=== PATIENT | male | born 1995 | race Caucasian/White ===

== ENCOUNTER 2024-07-16 21:37 | Emergency (ER) | payer OTHER ==
[2024-07-16 21:55] VITALS: BP 133/73; PULSE 82; RESP 18; TEMP 98; BMI 21.6
[2024-07-17] MEDS ORDERED: IBUPROFEN 400 MG TABLET (FP) PO ONE (00:11)
[2024-07-17] MEDS: IBUPROFEN 400 MG TABLET (FP) PO ONE (00:13)
[2024-07-17] MEDS ORDERED: LIDOCAINE 4% PATCH TP ONE (00:15)
[2024-07-17] MEDS: LIDOCAINE 4% PATCH TP ONE (00:16)
[2024-07-17] MEDS ORDERED: LIDOCAINE PATCH REMOVAL MC SCH (22:00)
== END 2024-07-17 02:31 | disposition home or self-care (01) ==
LOC: JERFT 21:37 → JER 21:37
DX: R51.9 Headache, unspecified (principal); M79.602 Pain in left arm; V49.40XA Driver injured in collision with unspecified motor vehicles in traffic accident, initial encounter
CPT/HCPCS: 70450-TC; 70486-TC; 99284-25